=== PATIENT | female | born 1940 | race Caucasian/White ===

== ENCOUNTER 2016-08-23 14:24 | Inpatient (IN) | payer BC, MEDICARE ==
[~2016-08-23] VITALS: Ht 172.7 cm; Wt 95.7 kg
--- NOTE | 2016-08-23 14:56 | PHYS DOC ---
Past Medical History Past Medical History: Cancer, Depression, High Cholesterol, Hypertension Additional Past Medical Histor: BRST CANCER 2010 Past Surgical History: Other Additional Past Surgical Histo: BILATERAL MASTECTOMY, ANKLE SURGERY Alcohol Use: None Drug Use: None Adult General Chief Complaint Chief Complaint: ALTERED MENTAL STATUS HPI HPI Patient is a 76 year old female who presents with complaint of weakness and confusion. Patient brought to the emergency department by her family. They states starting approximately 4 hours prior to arrival the patient was having left-sided weakness, however on further questioning, the patient's states that the patient was having left upper extremity weakness last night that seemed to improve. The patient states that she does not feel well but she is unable to recall all events that took place earlier today and is thus a poor historian. Patient denies chest pain but does admit to generalized fatigue and weakness. Patient has history of hypertension, hyperlipidemia, and history of breast cancer. Patient has not had any reported fevers, nausea, abdominal pain, or bloody stools. Review of Systems Review of Systems Constitutional: Denies fever or chills [] Eyes: Denies change in visual acuity, redness, or eye pain [] HENT: Denies nasal congestion or sore throat [] Respiratory: Denies cough or shortness of breath [] Cardiovascular: Denies chest pain or edema [] GI: Denies abdominal pain, nausea, vomiting, bloody stools or diarrhea [] : Denies dysuria or hematuria [] Musculoskeletal: Denies back pain or joint pain [] Integument: Denies rash or skin lesions [] Neurologic: Confusion, headache, left-sided weakness [] Current Medications Current Medications Current Medications Medications (Trade) Dose Ordered Sig/[facility] Start Time Stop Time Status Last Admin Dose Admin Acetaminophen (Tylenol) 650 mg PRN Q4HRS PRN 08/23/16 16:45 08/24/16 16:44 Fentanyl Citrate 50 mcg 50 mcg PRN Q2HR PRN 08/23/16 16:45 08/24/16 16:44 Nicardipine HCl/ Sodium Chloride (Cardene/Iv Sodium Chloride 0.9% 250ml) 270 ml @ 0 mls/hr CONT PRN 08/23/16 15:00 08/23/16 15:35 5 MLS/HR Ondansetron HCl (Zofran) 4 mg PRN Q8HRS PRN 08/23/16 16:45 4/7/17 16:44 Sodium Chloride (Iv Sodium Chloride 0.9% 1000ml Bag) 1,000 ml @ 100 mls/hr Q10H 08/23/16 17:00 08/24/16 16:59 Allergies Allergies Allergies Coded Allergies Type Severity Reaction Last Updated Verified No Known Drug Allergies 04/27/15 No Physical Exam Physical Exam Constitutional: Alert, confused, afebrile, appears in mild discomfort. [] HENT: Normocephalic, atraumatic, bilateral external ears normal, oropharynx moist, no oral exudates, nose normal. [] Eyes: PERRLA, EOMI, conjunctiva normal, no discharge. [] Neck: Normal range of motion, no tenderness, supple, no stridor. [] Cardiovascular: Tachycardia, regular rhythm, no murmur [] Lungs & Thorax: Bilateral breath sounds clear to auscultation [] Abdomen: Bowel sounds normal, soft, no tenderness, no masses, no pulsatile masses. [] Skin: Warm, dry, no erythema, no rash. [] Back: No tenderness, no CVA tenderness. [] Extremities: No tenderness, no cyanosis, no clubbing, ROM intact, no edema. [] Neurologic: Alert, disoriented to events, cranial nerves II through XII grossly intact, negative pronator drift, normal motor function, normal sensory function , no focal deficits noted. [] Current Patient Data Vital Signs Vital Signs Date Time Temp Pulse Resp B/P Pulse Ox O2 Delivery O2 Flow Rate FiO2 08/23/16 14:30 98.3 109 16 233/98 100 Room Air 98.3 Lab Values Laboratory Tests Test 08/23/16 14:31 08/23/16 15:00 08/23/16 16:10 Glucose (Fingerstick) 121mg/dL (70-99) H White Blood Count 6.4x10^3/uL (4.0-11.0) Red Blood Count 4.61x10^6/uL (3.50-5.40) Hemoglobin 11.7g/dL (12.0-15.5) L Hematocrit 36.2% (36.0-47.0) Mean Corpuscular Volume 79fL (79-100) Mean Corpuscular Hemoglobin 26pg (25-35) Mean Corpuscular Hemoglobin Concent 33g/dL (31-37) Red Cell Distribution Width 15.2% (11.5-14.5) H Platelet Count 277x10^3/uL (140-400) Neutrophils (%) (Auto) 71% (31-73) Lymphocytes (%) (Auto) 19% (24-48) L Monocytes (%) (Auto) 8% (0-9) Eosinophils (%) (Auto) 1% (0-3) Basophils (%) (Auto) 1% (0-3) Neutrophils # (Auto) 4.6x10^3uL (1.8-7.7) Lymphocytes # (Auto) 1.2x10^3/uL (1.0-4.8) Monocytes # (Auto) 0.5x10^3/uL (0.0-1.1) Eosinophils # (Auto) 0.1x10^3/uL (0.0-0.7) Basophils # (Auto) 0.0x10^3/uL (0.0-0.2) Prothrombin Time 12.8SEC (11.7-14.0) Prothrombin Time INR 1.0 (0.8-1.1) PTT 30SEC (24-38) Sodium Level 138mmol/L (136-145) Potassium Level 4.3mmol/L (3.5-5.1) Chloride Level 102mmol/L (98-107) Carbon Dioxide Level 26mmol/L (21-32) Anion Gap 10 (6-14) Blood Urea Nitrogen 21mg/dL (7-20) H Creatinine 1.1mg/dL (0.6-1.0) H Estimated GFR (Cockcroft-Gault) 48.4 BUN/Creatinine Ratio 19 (6-20) Glucose Level 130mg/dL (70-99) H Calcium Level 9.4mg/dL (8.5-10.1) Magnesium Level 2.1mg/dL (1.8-2.4) Total Bilirubin 0.2mg/dL (0.2-1.0) Aspartate Amino Transferase (AST) 14U/L (15-37) L Alanine Aminotransferase (ALT) 17U/L (14-59) Alkaline Phosphatase 63U/L (46-116) Total Protein 7.4g/dL (6.4-8.2) Albumin 3.9g/dL (3.4-5.0) Albumin/Globulin Ratio 1.1 (1.0-1.7) Lipase 229U/L (73-393) Urine Collection Type U cath Urine Color Yellow Urine Clarity Clear Urine pH 7.0 Urine Specific Davis 1.015 Urine Protein Negativemg/dL (NEG-TRACE) Urine Glucose (UA) Negativemg/dL (NEG) Urine Ketones (Stick) Negativemg/dL (NEG) Urine Blood Negative (NEG) Urine Nitrite Negative (NEG) Urine Bilirubin Negative (NEG) Urine Urobilinogen Dipstick 0.2mg/dL (0.2 mg/dL) Urine Leukocyte Esterase Negative (NEG) Urine RBC 0/HPF (0-2) Urine WBC 0/HPF (0-4) Urine Transitional Epithelial Cells Mod/LPF Urine Amorphous Sediment Present/HPF Urine Bacteria 0/HPF (0-FEW) Laboratory Tests 08/23/16 15:00 Laboratory Tests 08/23/16 15:00 EKG EKG Interpreted by me: Heart rate 97, sinus rhythm, normal intervals, normal axis, no acute ST/T-wave abnormalities present [] Radiology/Procedures Radiology/Procedures [address] [id number] IMAGING REPORT Signed PATIENT: ELAN MCGINNIS ACCOUNT: [id number] : 1940 LOCATION: ER AGE: 76 SEX: F EXAM STATUS: REG ER ORD. PHYSICIAN: NAOMY MAYFIELD MD REASON: altered male status, r/o acute cardiopulmonary abnormality, 3:05 pt w/ labs PROCEDURE: PORTABLE CHEST 1V Portable chest, 08/23/2016: History: Altered mental status The heart size and pulmonary vascularity are within normal limits. No pulmonary infiltrate is seen. There are calcified right hilar lymph nodes. There is no evidence of pleural fluid. Surgical clips are projected over the left lower chest. IMPRESSION: No acute cardiopulmonary abnormality is detected. DICTATED and SIGNED BY: LONNIE CHANCE MD DATE: 08/23/16 3878 CC: NAOMY MAYFIELD MD; ABHAY CANTRELL MD ~ [id number] [place] [address] IMAGING REPORT Signed PATIENT: ELAN MCGINNIS ACCOUNT: [id number] : 1940 LOCATION: ER AGE: 76 SEX: F EXAM STATUS: PRE ER ORD. PHYSICIAN: NAOMY MAYFIELD MD REASON: left-sided weakness since last night PROCEDURE: CT HEAD WO CONTRAST CT of the head without contrast, 08/23/2016: History: Headache, altered mental status, left-sided weakness Comparison is made to a study from 06/28/2014. There is mild cerebral atrophy. There are mild patchy lucencies in the deep white matter bilaterally compatible with chronic ischemic change. The ventricles are within normal limits in size. There is no shift of the midline structures. There is no evidence of acute intracranial hemorrhage or mass effect. IMPRESSION: 1. Chronic findings as described above. 2. No acute intracranial abnormality is detected. RS Compliance Statement: One or more of the following individualized dose reduction techniques were utilized for this examination: 1. Automated exposure control 2. Adjustment of the mA and/or kV according to patient size 3. Use of iterative reconstruction technique DICTATED and SIGNED BY: LONNIE CHANCE MD DATE: 08/23/16 1524 CC: NAOMY MAYFIELD MD; ABHAY CANTRELL MD ~ [] Course & Med Decision Making Course & Med Decision Making Pertinent Labs and Imaging studies reviewed. (See chart for details) Patient's family critically hypertensive and started on Cardene drip for control of blood pressure. Patient's CT was negative for bleed or acute intracranial process. On reevaluation, patient states that she has felt improvement though still somewhat confused. The patient be admitted the hospital for further treatment of malignant hypertension and further evaluation to rule out acute CVA. Due to patient presenting greater than 3 hours from time of onset of symptoms with no further focal deficits noted on exam, the patient is not a candidate for TPA. The patient was admitted to Dr. Cantrell and consults were placed to Dr. Brewer of cardiology and Dr. Branch of neurology. Critical care time excluding procedures: 45 minutes Dragon Disclaimer Dragon Disclaimer This electronic medical record was generated, in whole or in part, using a voice recognition dictation system. Departure Departure Impression: Primary Impression: Malignant essential hypertension Additional Impression: Metabolic encephalopathy Disposition: 09 ADMITTED INPATIENT Admitting Physician: Roro Cantrell Condition: GUARDED Referrals: ABHAY CANTRELL MD (PCP) Problem Qualifiers NAOMY MAYFIELD MD Aug 23, 2016 14:56
[2016-08-23] MEDS ORDERED: IV NORMAL SALINE 1000ML BAG 1,000 ML IV SCH (15:00)
[2016-08-23 15:13] LABS: BASO % 1 % (0-3); EOS % 1 % (0-3); HEMATOCRIT 36.2 % (36.0-47.0); HEMOGLOBIN 11.7 g/dL (12.0-15.5); LYMPH # 1.2 x10^3/uL (1.0-4.8); LYMPH % 19 % (24-48); MEAN CORPUSCULAR HEMOGLOBIN 26 pg (25-35); MEAN CORPUSCULAR HGB CONC 33 g/dL (31-37); MEAN CORPUSCULAR VOLUME 79 fL (79-100); MONO % 8 % (0-9); NEUT % 71 % (31-73); PLATELET COUNT 277 x10^3/uL (140-400); RED BLOOD COUNT 4.61 x10^6/uL (3.50-5.40); RED CELL DISTRIBUTION WIDTH 15.2 % (11.5-14.5); WHITE BLOOD COUNT 6.4 x10^3/uL (4.0-11.0)
--- NOTE | 2016-08-23 15:18 | EKG ---
[facility] [address] [place] [address] Test Date: 2016-08-23 Test Time: 15:11:15 Pat Name: ELAN MCGINNIS Department: Room: Gender: F Supervisor Sample: : 1940 Requested By: NAOMY MAYFIELD Order Number: [id number] Reading MD: Measurements Intervals Mentcle Rate: 97 P: 52 TN: 186 QRS: 6 QRSD: 78 T: 47 QT: 364 QTc: 467 Interpretive Statements SINUS RHYTHM LEFT ATRIAL ABNORMALITY QRS(T) CONTOUR ABNORMALITY CONSIDER ANTEROLATERAL MYOCARDIAL DAMAGE T ABNORMALITY IN ANTERIOR LEADS ABNORMAL ECG RI6.01 No previous ECG available for comparison
[2016-08-23 15:23] LABS: PROTHROMBIN TIME PATIENT 12.8 SEC (11.7-14.0)
--- NOTE | 2016-08-23 15:28 | RAD ---
CT of the head without contrast, 08/23/2016: History: Headache, altered mental status, left-sided weakness Comparison is made to a study from 06/28/2014. There is mild cerebral atrophy. There are mild patchy lucencies in the deep white matter bilaterally compatible with chronic ischemic change. The ventricles are within normal limits in size. There is no shift of the midline structures. There is no evidence of acute intracranial hemorrhage or mass effect. IMPRESSION: 1. Chronic findings as described above. 2. No acute intracranial abnormality is detected. PQRS Compliance Statement: One or more of the following individualized dose reduction techniques were utilized for this examination: 1. Automated exposure control 2. Adjustment of the mA and/or kV according to patient size 3. Use of iterative reconstruction technique
[2016-08-23] MEDS: NICARDIPINE HCL 50 MG in IV NORMAL SALINE 250ML 250 ML IV PRN (15:35)
[2016-08-23 16:04] LABS: CALCIUM 9.4 mg/dL (8.5-10.1); CREATININE 1.1 mg/dL (0.6-1.0); GFR 48.4; POTASSIUM 4.3 mmol/L (3.5-5.1)
[2016-08-23 16:09] LABS: ALBUMIN 3.9 g/dL (3.4-5.0); ALBUMIN/GLOBULIN RATIO 1.1 (1.0-1.7); MAGNESIUM 2.1 mg/dL (1.8-2.4); TOTAL BILIRUBIN 0.2 mg/dL (0.2-1.0); TOTAL PROTEIN 7.4 g/dL (6.4-8.2)
--- NOTE | 2016-08-23 16:13 | RAD ---
Portable chest, 08/23/2016: History: Altered mental status The heart size and pulmonary vascularity are within normal limits. No pulmonary infiltrate is seen. There are calcified right hilar lymph nodes. There is no evidence of pleural fluid. Surgical clips are projected over the left lower chest. IMPRESSION: No acute cardiopulmonary abnormality is detected.
[2016-08-23 16:26] LABS: BILIRUBIN,URINE NEGATIVE (NEG); GLUCOSE,URINE NEGATIVE (NEG); NITRITE,URINE NEGATIVE (NEG); PROTEIN,URINE NEGATIVE (NEG-TRACE); UROBILINOGEN,URINE 0.2 mg/dL (0.2 mg/dL)
[2016-08-23 16:39] LABS: BACTERIA,URINE 0 /HPF (0-FEW); RBC,URINE 0 /HPF (0-2); WBC,URINE 0 /HPF (0-4)
[2016-08-23] MEDS ORDERED: ONDANSETRON PF 4 MG/2 ML VIAL. IV PRN (16:45)
[2016-08-23] MEDS ORDERED: FENTANYL PF 100 MCG/2 ML VIAL. IV PRN (16:45)
[2016-08-23] MEDS ORDERED: PRAV40TA2 PO (18:08)
[2016-08-23] MEDS ORDERED: TIOT18CA IH (18:08)
[2016-08-23] MEDS ORDERED: PANT40TA5 PO (18:08)
[2016-08-23] MEDS ORDERED: OMEP20TA PO (18:08)
[2016-08-23] MEDS ORDERED: LEVO137T3 PO (18:08)
[2016-08-23] MEDS ORDERED: LISI-334 PO (18:08)
[2016-08-23] MEDS ORDERED: BENZ100C2 PO (18:08)
[2016-08-23] MEDS ORDERED: TRAM50TA PO (18:08)
[2016-08-23] MEDS ORDERED: THIO25TA PO (18:08)
[2016-08-23 19:15] VITALS: BP 146/117
[2016-08-23 20:00] VITALS: BP 154/72
[2016-08-23 21:18] VITALS: BP 143/71
[2016-08-23 22:00] VITALS: BP 147/61
[2016-08-23] MEDS: ACETAMINOPHEN 325 MG TABLET. PO PRN (22:39)
[2016-08-23 23:20] VITALS: BP 148/67
[2016-08-24] VITALS (13 sets, daily range): BP systolic 116–196; BP diastolic 52–73
[2016-08-24] MEDS: NICARDIPINE HCL 50 MG in IV NORMAL SALINE 250ML 250 ML IV PRN (02:12)
[2016-08-24] MEDS: IV NORMAL SALINE 1000ML BAG 1,000 ML IV SCH ×3 (02:13→13:00)
[2016-08-24 04:48] LABS: CALCIUM 8.9 mg/dL (8.5-10.1); CREATININE 0.9 mg/dL (0.6-1.0); POTASSIUM 3.7 mmol/L (3.5-5.1)
[2016-08-24 05:33] LABS: BASO % 0 % (0-3); EOS % 0 % (0-3); HEMATOCRIT 35.4 % (36.0-47.0); HEMOGLOBIN 11.5 g/dL (12.0-15.5); LYMPH # 1.6 x10^3/uL (1.0-4.8); LYMPH % 19 % (24-48); MEAN CORPUSCULAR HEMOGLOBIN 25 pg (25-35); MEAN CORPUSCULAR HGB CONC 33 g/dL (31-37); MEAN CORPUSCULAR VOLUME 78 fL (79-100); MONO % 9 % (0-9); NEUT % 72 % (31-73); PLATELET COUNT 270 x10^3/uL (140-400); RED BLOOD COUNT 4.56 x10^6/uL (3.50-5.40); RED CELL DISTRIBUTION WIDTH 15.3 % (11.5-14.5); WHITE BLOOD COUNT 8.2 x10^3/uL (4.0-11.0)
[2016-08-24] MEDS ORDERED: TRAMADOL 50 MG TABLET. PO PRN (07:15)
[2016-08-24] MEDS ORDERED: DEXTROSE 50% 25 GM / 50ML DISP.SYRIN. IV PRN (08:30)
--- NOTE | 2016-08-24 08:35 | PDOC ---
Provider Note Provider Note H&P dictated encephalopathy with left sided weakness due to malignant hypertensive event without clear cause. Better overnight after being placed on nicardipine drip. BP now controlled and neurologic/encephalopathic symptoms have resolved. Cardiology and Neurology to see. Only abnormal exam finding I could find is flushing of her cheeks. She also has mild anemia and mild hyperglycemia ABHAY PARKS MD Aug 24, 2016 08:34
[2016-08-24] MEDS ORDERED: PNEUMOCOCCAL VAX SCREEN BY RX. MC ONE (09:00)
[2016-08-24] MEDS ORDERED: PNEUMOC CONJ VACC 23-VALENT 0.5 ML VIAL. VAX IM ONE (09:00)
[2016-08-24] MEDS ORDERED: NON FORMULARY ITEM (Tiotropium Bromide (Spiriva) 2 INH) IH SCH (09:00)
[2016-08-24] MEDS ORDERED: NON FORMULARY ITEM (Omeprazole 20 MG) PO SCH (09:00)
[2016-08-24] MEDS: PANTOPRAZOLE 40 MG TABLET.DR. PO SCH (09:27)
[2016-08-24] MEDS: LISINOPRIL 20 MG TABLET PO SCH (09:28)
[2016-08-24] MEDS: LEVOTHYROXINE 137 MCG TABLET PO SCH (09:28)
--- NOTE | 2016-08-24 10:46 | PDOC2 ---
NEUROLOGY CONSULT Date of Admission Date of Admission DATE: 08/24/16 TIME: 10:40 Reason for Consult Reason for Consult: Stroke symptoms Referring Physician Referring Physician: Dr. Cantrell Source Source: Chart review, Patient History of Present Illness History of Present Illness The patient is a 76-year-old right-handed female with history of hypertension who noticed headache and left-sided weakness beginning 2 nights ago. Symptoms were worse yesterday and she came to the emergency department where she was found to have hypertension. I discussed the case and we agreed that the patient was not a candidate for tissue plasminogen activator as her symptoms actually markedly improved with treatment of blood pressure. She feels fine today. There is no prior history of stroke, seizure, or head injury. Night nurse reports that the patient had trouble interpreting the face pain diagrams, but she is doing fine today with that. Past Medical History Cardiovascular: HTN, Hyperlipidemia Pulmonary: COPD GI: GERD Heme/Onc: Cancer (breast) Psych: Depression Musculoskeletal: Osteoarthritis, Other (ankle fracture) Endocrine: Hypothyroidism Past Surgical History Past Surgical History: Cholecystectomy, Cataract Removal, Mastectomy Family History Family History: Other (encephalitis) Social History Social History , one half pack of cigarettes per day, no alcohol Current Medications Current Medications Current Medications Sodium Chloride 1,000 ml @ 100 mls/hr Q10H IV Last administered on 08/23/16 15 :36; Start 08/23/16 at 15:00; Stop 08/24/16 at 00:59; Status DC Nicardipine HCl/ Sodium Chloride (Cardene/Iv Sodium Chloride 0.9% 250ml) 270 ml @ 0 mls/hr CONT PRN IV SEE I/O RECORD Last administered on 08/24/16 02:12; Start 08/23/16 at 15:00 Ondansetron HCl (Zofran) 4 mg PRN Q8HRS PRN IV NAUSEA/VOMITING; Start 08/23/16 at 16:45; Stop 08/24/16 at 16:44 Fentanyl Citrate 50 mcg 50 mcg PRN Q2HR PRN IV PAIN; Start 08/23/16 at 16:45; Stop 08/24/16 at 16:44 Sodium Chloride (Iv Sodium Chloride 0.9% 1000ml Bag) 1,000 ml @ 100 mls/hr Q10H IV Last administered on 08/24/16 02:13; Start 08/23/16 at 17:00; Stop at 16:59 Acetaminophen (Tylenol) 650 mg PRN Q4HRS PRN PO FEVER Last administered on 22:39; Start 08/23/16 at 16:45; Stop 08/24/16 at 16:44 Pneumococcal Polyvalent Vaccine (Do NOT chart on this placeholder) 1 each 1X ONCE MC ; Start 08/24/16 at 09:00; Stop 08/24/16 at 09:01; Status UNV Pneumococcal Polyvalent Vaccine (Pneumovax 23) 0.5 ml ONCE ONCE VAX IM ; Start 08/24/16 at 09:00; Stop 08/24/16 at 09:01; Status DC Levothyroxine Sodium (Synthroid) 137 mcg DAILYAC PO Last administered on 09:28; Start 08/24/16 at 08:00 Lisinopril (Prinivil) 20 mg DAILY PO Last administered on 08/24/16 09:28; Start 08/24/16 at 09:00 Pantoprazole Sodium (Protonix) 40 mg DAILYAC PO Last administered on 08/24/16 09:27; Start 08/24/16 at 08:00 Thioridazine HCl (Mellaril) 25 mg QHS PO ; Start 08/24/16 at 21:00; Stop 08/24/16 at 21:00; Status DC Tramadol HCl (Ultram) 50 mg PRN Q6HRS PRN PO PAIN; Start 08/24/16 at 07:15 Non-Formulary Medication 20 mg DAILY PO ; Start 08/24/16 at 09:00; Status UNV Atorvastatin Calcium (Lipitor) 10 mg QHS PO ; Start 08/24/16 at 21:00 Non-Formulary Medication 2 inh DAILY IH ; Start 08/24/16 at 09:00; Status UNV Albuterol/ Ipratropium (Duoneb) 3 ml RTQID NEB ; Start 08/24/16 at 08:00 Thioridazine HCl (Mellaril) 25 mg QHS PO ; Start 08/24/16 at 21:00 Insulin Aspart (Novolog) 0-5 UNITS TIDWMEALS SQ ; Start 08/24/16 at 12:00 Dextrose (Dextrose 50%-Water Syringe) 12.5 gm PRN Q15MIN PRN IV SEE COMMENTS; Start 08/24/16 at 08:30 Active Scripts Active Reported Spiriva (Tiotropium [place]) 18 Mcg Cap.w.dev 2 Inh IH DAILY Tramadol Hcl 50 Mg Tablet 50 Mg PO Q6H PRN Omeprazole 20 Mg Tablet. 20 Mg PO DAILY Benzonatate 100 Mg Capsule 100 Mg PO TID PRN Thioridazine Hcl 25 Mg Tablet 25 Mg PO Pravastatin Sodium 40 Mg Tablet 40 Mg PO DAILY Lisinopril 20 Mg Tablet 20 Mg PO DAILY Levothyroxine Sodium 137 Mcg Tablet 137 Mcg PO DAILYAC Pantoprazole Sodium 40 Mg Tablet. 1 Tab PO DAILY Allergies Allergies: Coded Allergies: No Known Drug Allergies (Unverified , 04/27/15) ROS Review of System Patient denies fevers, chills, weight loss, angina, abdominal pain, change in bowels, or dysuria. Positive for dyspnea. 14 point review of systems is negative. Physical Exam Physical Examination PHYSICAL EXAMINATION: Vital signs: see above. General appearance is normal and in no acute distress. HEENT: Normocephalic and nontraumatic. Eyes, nose, ears, and throat are unremarkable. Neck is supple. No lymphadenopathy. No bruits are heard over the carotid artery. No crepitus. NEUROLOGICAL EXAMINATION: Mental Status Examination: Alert. Oriented to time, place, and person. Answers questions and follows commends. Pupils are equal round and reactive to light and accommodation. Extraocular movements are intact. Visual field exam shows no defect on the direct confrontation. No motor or sensory deficits on the facial exam. Uvula in the midline and the soft palate elevated symmetrically. No deviation of the tongue to any direction. Gross hearing is normal. Shoulder shrug normal. Muscle tone is normal. Muscle strength is 5. Deep tendon reflexes are 2+ all around. Plantar reflex is with flexion response bilaterally. Ksnjxo-ih-zjmu test performance is accurate. Tandem walk test is accurate. Alternative movements are accurate. Romberg test is negative. Gait is normal. Sensory exam shows no deficits. No cerebellar signs are elicited. Vitals VITALS Vital Signs Date Time Temp Pulse Resp B/P Pulse Ox O2 Delivery O2 Flow Rate FiO2 08/24/16 09:28 107 136/66 08/24/16 07:00 98.0 19 92 Room Air 98.0 Labs Labs Laboratory Tests Test 08/23/16 14:31 4/6/17 15:00 08/23/16 16:10 08/24/16 04:00 Glucose (Fingerstick) 121mg/dL (70-99) White Blood Count 6.4x10^3/uL (4.0-11.0) Red Blood Count 4.61x10^6/uL (3.50-5.40) Hemoglobin 11.7g/dL (12.0-15.5) Hematocrit 36.2% (36.0-47.0) Mean Corpuscular Volume 79fL (79-100) Mean Corpuscular Hemoglobin 26pg (25-35) Mean Corpuscular Hemoglobin Concent 33g/dL (31-37) Red Cell Distribution Width 15.2% (11.5-14.5) Platelet Count 277x10^3/uL (140-400) Neutrophils (%) (Auto) 71% (31-73) Lymphocytes (%) (Auto) 19% (24-48) Monocytes (%) (Auto) 8% (0-9) Eosinophils (%) (Auto) 1% (0-3) Basophils (%) (Auto) 1% (0-3) Neutrophils # (Auto) 4.6x10^3uL (1.8-7.7) Lymphocytes # (Auto) 1.2x10^3/uL (1.0-4.8) Monocytes # (Auto) 0.5x10^3/uL (0.0-1.1) Eosinophils # (Auto) 0.1x10^3/uL (0.0-0.7) Basophils # (Auto) 0.0x10^3/uL (0.0-0.2) Prothrombin Time 12.8SEC (11.7-14.0) Prothromb Time International Ratio 1.0 (0.8-1.1) Activated Partial Thromboplast Time 30SEC (24-38) Sodium Level 138mmol/L (136-145) 137mmol/L (136-145) Potassium Level 4.3mmol/L (3.5-5.1) 3.7mmol/L (3.5-5.1) Chloride Level 102mmol/L (98-107) 102mmol/L (98-107) Carbon Dioxide Level 26mmol/L (21-32) 23mmol/L (21-32) Anion Gap 10 (6-14) 12 (6-14) Blood Urea Nitrogen 21mg/dL (7-20) 12mg/dL (7-20) Creatinine 1.1mg/dL (0.6-1.0) 0.9mg/dL (0.6-1.0) Estimated GFR (Cockcroft-Gault) 48.4 61.0 BUN/Creatinine Ratio 19 (6-20) Glucose Level 130mg/dL (70-99) 137mg/dL (70-99) Calcium Level 9.4mg/dL (8.5-10.1) 8.9mg/dL (8.5-10.1) Magnesium Level 2.1mg/dL (1.8-2.4) Total Bilirubin 0.2mg/dL (0.2-1.0) Aspartate Amino Transf (AST/SGOT) 14U/L (15-37) Alanine Aminotransferase (ALT/SGPT) 17U/L (14-59) Alkaline Phosphatase 63U/L (46-116) Total Protein 7.4g/dL (6.4-8.2) Albumin 3.9g/dL (3.4-5.0) Albumin/Globulin Ratio 1.1 (1.0-1.7) Lipase 229U/L (73-393) Urine Collection Type U cath Urine Color Yellow Urine Clarity Clear Urine pH 7.0 Urine Specific [place] 1.015 Urine Protein Negativemg/dL (NEG-TRACE) Urine Glucose (UA) Negativemg/dL (NEG) Urine Ketones (Stick) Negativemg/dL (NEG) Urine Blood Negative (NEG) Urine Nitrite Negative (NEG) Urine Bilirubin Negative (NEG) Urine Urobilinogen Dipstick 0.2mg/dL (0.2 mg/dL) Urine Leukocyte Esterase Negative (NEG) Urine RBC 0/HPF (0-2) Urine WBC 0/HPF (0-4) Urine Transitional Epithelial Cells Mod/LPF Urine Amorphous Sediment Present/HPF Urine Bacteria 0/HPF (0-FEW) Thyroid Stimulating Hormone (TSH) 0.218uIU/mL (0.358-3.74) Test 08/24/16 05:00 White Blood Count 8.2x10^3/uL (4.0-11.0) Red Blood Count 4.56x10^6/uL (3.50-5.40) Hemoglobin 11.5g/dL (12.0-15.5) Hematocrit 35.4% (36.0-47.0) Mean Corpuscular Volume 78fL (79-100) Mean Corpuscular Hemoglobin 25pg (25-35) Mean Corpuscular Hemoglobin Concent 33g/dL (31-37) Red Cell Distribution Width 15.3% (11.5-14.5) Platelet Count 270x10^3/uL (140-400) Neutrophils (%) (Auto) 72% (31-73) Lymphocytes (%) (Auto) 19% (24-48) Monocytes (%) (Auto) 9% (0-9) Eosinophils (%) (Auto) 0% (0-3) Basophils (%) (Auto) 0% (0-3) Neutrophils # (Auto) 5.9x10^3uL (1.8-7.7) Lymphocytes # (Auto) 1.6x10^3/uL (1.0-4.8) Monocytes # (Auto) 0.7x10^3/uL (0.0-1.1) Eosinophils # (Auto) 0.0x10^3/uL (0.0-0.7) Basophils # (Auto) 0.0x10^3/uL (0.0-0.2) Laboratory Tests Test 08/23/16 14:31 08/23/16 15:00 08/23/16 16:10 08/24/16 04:00 Glucose (Fingerstick) 121mg/dL (70-99) White Blood Count 6.4x10^3/uL (4.0-11.0) Red Blood Count 4.61x10^6/uL (3.50-5.40) Hemoglobin 11.7g/dL (12.0-15.5) Hematocrit 36.2% (36.0-47.0) Mean Corpuscular Volume 79fL (79-100) Mean Corpuscular Hemoglobin 26pg (25-35) Mean Corpuscular Hemoglobin Concent 33g/dL (31-37) Red Cell Distribution Width 15.2% (11.5-14.5) Platelet Count 277x10^3/uL (140-400) Neutrophils (%) (Auto) 71% (31-73) Lymphocytes (%) (Auto) 19% (24-48) Monocytes (%) (Auto) 8% (0-9) Eosinophils (%) (Auto) 1% (0-3) Basophils (%) (Auto) 1% (0-3) Neutrophils # (Auto) 4.6x10^3uL (1.8-7.7) Lymphocytes # (Auto) 1.2x10^3/uL (1.0-4.8) Monocytes # (Auto) 0.5x10^3/uL (0.0-1.1) Eosinophils # (Auto) 0.1x10^3/uL (0.0-0.7) Basophils # (Auto) 0.0x10^3/uL (0.0-0.2) Prothrombin Time 12.8SEC (11.7-14.0) Prothromb Time International Ratio 1.0 (0.8-1.1) Activated Partial Thromboplast Time 30SEC (24-38) Sodium Level 138mmol/L (136-145) 137mmol/L (136-145) Potassium Level 4.3mmol/L (3.5-5.1) 3.7mmol/L (3.5-5.1) Chloride Level 102mmol/L (98-107) 102mmol/L (98-107) Carbon Dioxide Level 26mmol/L (21-32) 23mmol/L (21-32) Anion Gap 10 (6-14) 12 (6-14) Blood Urea Nitrogen 21mg/dL (7-20) 12mg/dL (7-20) Creatinine 1.1mg/dL (0.6-1.0) 0.9mg/dL (0.6-1.0) Estimated GFR (Cockcroft-Gault) 48.4 61.0 BUN/Creatinine Ratio 19 (6-20) Glucose Level 130mg/dL (70-99) 137mg/dL (70-99) Calcium Level 9.4mg/dL (8.5-10.1) 8.9mg/dL (8.5-10.1) Magnesium Level 2.1mg/dL (1.8-2.4) Total Bilirubin 0.2mg/dL (0.2-1.0) Aspartate Amino Transf (AST/SGOT) 14U/L (15-37) Alanine Aminotransferase (ALT/SGPT) 17U/L (14-59) Alkaline Phosphatase 63U/L (46-116) Total Protein 7.4g/dL (6.4-8.2) Albumin 3.9g/dL (3.4-5.0) Albumin/Globulin Ratio 1.1 (1.0-1.7) Lipase 229U/L (73-393) Urine Collection Type U cath Urine Color Yellow Urine Clarity Clear Urine pH 7.0 Urine Specific [place] 1.015 Urine Protein Negativemg/dL (NEG-TRACE) Urine Glucose (UA) Negativemg/dL (NEG) Urine Ketones (Stick) Negativemg/dL (NEG) Urine Blood Negative (NEG) Urine Nitrite Negative (NEG) Urine Bilirubin Negative (NEG) Urine Urobilinogen Dipstick 0.2mg/dL (0.2 mg/dL) Urine Leukocyte Esterase Negative (NEG) Urine RBC 0/HPF (0-2) Urine WBC 0/HPF (0-4) Urine Transitional Epithelial Cells Mod/LPF Urine Amorphous Sediment Present/HPF Urine Bacteria 0/HPF (0-FEW) Thyroid Stimulating Hormone (TSH) 0.218uIU/mL (0.358-3.74) Test 08/24/16 05:00 White Blood Count 8.2x10^3/uL (4.0-11.0) Red Blood Count 4.56x10^6/uL (3.50-5.40) Hemoglobin 11.5g/dL (12.0-15.5) Hematocrit 35.4% (36.0-47.0) Mean Corpuscular Volume 78fL (79-100) Mean Corpuscular Hemoglobin 25pg (25-35) Mean Corpuscular Hemoglobin Concent 33g/dL (31-37) Red Cell Distribution Width 15.3% (11.5-14.5) Platelet Count 270x10^3/uL (140-400) Neutrophils (%) (Auto) 72% (31-73) Lymphocytes (%) (Auto) 19% (24-48) Monocytes (%) (Auto) 9% (0-9) Eosinophils (%) (Auto) 0% (0-3) Basophils (%) (Auto) 0% (0-3) Neutrophils # (Auto) 5.9x10^3uL (1.8-7.7) Lymphocytes # (Auto) 1.6x10^3/uL (1.0-4.8) Monocytes # (Auto) 0.7x10^3/uL (0.0-1.1) Eosinophils # (Auto) 0.0x10^3/uL (0.0-0.7) Basophils # (Auto) 0.0x10^3/uL (0.0-0.2) Images Images CT head Assessment/Plan Assessment/Plan Impression: Hypertensive encephalopathy, I doubt that she had a transient ischemic attack and there is no sign that she had a stroke. Recommendations: Await brain MRI Further stroke workup if it is positive Otherwise pursue blood pressure control Aspirin Statin Thank you for letting me help with the patient's care. WILDER ELIAS MD Aug 24, 2016 10:46
[2016-08-24] MEDS: INSULIN ASPART 300 UNITS/3 ML INSULN.PEN SQ SCH ×2 (12:00→17:00)
--- NOTE | 2016-08-24 12:51 | RAD ---
BRAIN W/O CONTRAST Indication: intermittent left-sided weakness, ? STROKE, X 1 DAY, HEADACHE, weakness, ? STROKE, X 1 DAY, HEADACHE, HTN / Spl. Instructions: / History: TECHNIQUE: Axial diffusion weighted imaging was obtained. Additional sagittal T1, axial T1, axial FLAIR, and axial T2 weighted imaging of the brain was also performed. FINDINGS: There are scattered foci of FLAIR signal hyperintensity in the periventricular white matter which are nonspecific but most likely related to sequelae of chronic small vessel ischemic disease. No evidence of acute intracranial hemorrhage. No restricted diffusion to indicate acute infarct. No extra-axial fluid collections. No midline shift or mass effect. Ventricular size is appropriate. Midline structures have a normal anatomic configuration. Basal cisterns are patent. Arterial flow voids at the skull base and major dural venous sinuses are maintained. Globes and orbits are unremarkable. Paranasal sinuses and mastoid air cells are clear. IMPRESSION: No acute or recent infarct. No acute intracranial abnormality. Electronically signed by: Aiden Appiah (Aug 24, 2016 12:49:33)
[2016-08-24] MEDS: IPRATRPIUM/ALBUTEROL 0.5/2.5MG 3 ML NEBU. NEB SCH ×3 (13:14→19:48)
--- NOTE | 2016-08-24 13:30 | PDOC2 ---
KIRILLCHEYENNE DOTSON HEEL NAIL RASPER 08/24/16 1330: CARDIAC CONSULT DATE OF CONSULT Date of Consult DATE: 08/24/16 TIME: 13:11 REASON FOR CONSULT Reason for Consult: malignant HTN REFERRING PHYSICIAN Referring Physician: Dr. Paul Shen SOURCE Source: Chart review, Patient HISTORY OF PRESENT ILLNESS HISTORY OF PRESENT ILLNESS 76 year old female with changes in mental status and left side weakness. Patient without clear recall of events. noted she was dropping objects and had a headache as well as an inability to complete sentences or thoughts. She denies diplopia but may have had difficulty with clear vision. She denies chest pain, dyspnea, syncope, near syncope or edema. BP on admission was 233/98. She was started on a nicardipine gtt. CT scan of the head without acute abnormalities and CXR without acute findings. EKG without ST segment changes. Reason for Visit: malignant HTN PAST MEDICAL HISTORY Cardiovascular: HTN, Hyperlipidemia Pulmonary: COPD GI: GERD Heme/Onc: Cancer (breast with bilateral mastectomies) Psych: Other (? - has been on mellaril @ home) Musculoskeletal: Osteoarthritis ENT: Allergic Rhinitis Endocrine: Hypothyroidism PAST SURGICAL HISTORY Past Surgical History: Cholecystectomy, Cataract Removal (bilateral ), Mastectomy (bilateral ), Tonsillectomy, Other (repair of left ankle fracture) FAMILY HISTORY Family History: Family History Unknown SOCIAL HISTORY Smoke: <1 pack per day (05/21 ppd; quit 1990) ALCOHOL: rare Drugs: None Lives: with Family () CURRENT MEDICATIONS CURRENT MEDICATIONS Current Medications Medications (Trade) Dose Ordered Sig/Lola Route PRN Reason Start Time Stop Time Status Last Admin Dose Admin Sodium Chloride 1,000 ml @ 100 mls/hr Q10H IV 08/23/16 15:00 08/24/16 00:59 DC 08/23/16 15:36 Nicardipine HCl 50 mg/Sodium Chloride 270 ml @ 0 mls/hr CONT PRN IV SEE I/O RECORD 08/23/16 15:00 08/24/16 02:12 Sodium Chloride (Iv Sodium Chloride 0.9% 1000ml Bag) 1,000 ml @ 100 mls/hr Q10H IV 08/23/16 17:00 08/24/16 16:59 08/24/16 02:13 Acetaminophen (Tylenol) 650 mg PRN Q4HRS PRN PO FEVER 08/23/16 16:45 08/24/16 16:44 4/6/17 22:39 Levothyroxine Sodium (Synthroid) 137 mcg DAILYAC PO 08/24/16 08:00 08/24/16 09:28 Lisinopril (Prinivil) 20 mg DAILY PO 08/24/16 09:00 08/24/16 09:28 Pantoprazole Sodium (Protonix) 40 mg DAILYAC PO 08/24/16 08:00 08/24/16 09:27 ALLERGIES ALLERGIES: Coded Allergies: No Known Drug Allergies (Unverified , 04/27/15) ROS Review of System 14 point review with pertinent positives in HPI PHYSICAL EXAM General: Alert, Cooperative, No acute distress HEENT: Atraumatic, PERRLA Lungs: Clear to auscultation, Normal air movement Heart: Regular rate, Normal S1, Normal S2, No murmurs, Other (no carotid bruits ; tele: SR) Abdomen: Normal bowel sounds, Soft, No tenderness, Other (obese abdomen) Extremities: No edema, Normal pulses Skin: No rashes Neuro: Normal speech Psych/Mental Status: Mood NL MUSCULOSKELETAL: Osteoarthritic changes both hands VITALS VITALS Vital Signs Date Time Temp Pulse Resp B/P Pulse Ox O2 Delivery O2 Flow Rate FiO2 08/24/16 11:27 98.1 97 20 122/52 92 Room Air 98.1 LABS Lab: Laboratory Tests Test 08/23/16 14:31 08/23/16 15:00 08/23/16 16:10 08/24/16 04:00 Glucose (Fingerstick) 121mg/dL (70-99) White Blood Count 6.4x10^3/uL (4.0-11.0) Red Blood Count 4.61x10^6/uL (3.50-5.40) Hemoglobin 11.7g/dL (12.0-15.5) Hematocrit 36.2% (36.0-47.0) Mean Corpuscular Volume 79fL (79-100) Mean Corpuscular Hemoglobin 26pg (25-35) Mean Corpuscular Hemoglobin Concent 33g/dL (31-37) Red Cell Distribution Width 15.2% (11.5-14.5) Platelet Count 277x10^3/uL (140-400) Neutrophils (%) (Auto) 71% (31-73) Lymphocytes (%) (Auto) 19% (24-48) Monocytes (%) (Auto) 8% (0-9) Eosinophils (%) (Auto) 1% (0-3) Basophils (%) (Auto) 1% (0-3) Neutrophils # (Auto) 4.6x10^3uL (1.8-7.7) Lymphocytes # (Auto) 1.2x10^3/uL (1.0-4.8) Monocytes # (Auto) 0.5x10^3/uL (0.0-1.1) Eosinophils # (Auto) 0.1x10^3/uL (0.0-0.7) Basophils # (Auto) 0.0x10^3/uL (0.0-0.2) Prothrombin Time 12.8SEC (11.7-14.0) Prothromb Time International Ratio 1.0 (0.8-1.1) Activated Partial Thromboplast Time 30SEC (24-38) Sodium Level 138mmol/L (136-145) 137mmol/L (136-145) Potassium Level 4.3mmol/L (3.5-5.1) 3.7mmol/L (3.5-5.1) Chloride Level 102mmol/L (98-107) 102mmol/L (98-107) Carbon Dioxide Level 26mmol/L (21-32) 23mmol/L (21-32) Anion Gap 10 (6-14) 12 (6-14) Blood Urea Nitrogen 21mg/dL (7-20) 12mg/dL (7-20) Creatinine 1.1mg/dL (0.6-1.0) 0.9mg/dL (0.6-1.0) Estimated GFR (Cockcroft-Gault) 48.4 61.0 BUN/Creatinine Ratio 19 (6-20) Glucose Level 130mg/dL (70-99) 137mg/dL (70-99) Calcium Level 9.4mg/dL (8.5-10.1) 8.9mg/dL (8.5-10.1) Magnesium Level 2.1mg/dL (1.8-2.4) Total Bilirubin 0.2mg/dL (0.2-1.0) Aspartate Amino Transf (AST/SGOT) 14U/L (15-37) Alanine Aminotransferase (ALT/SGPT) 17U/L (14-59) Alkaline Phosphatase 63U/L (46-116) Total Protein 7.4g/dL (6.4-8.2) Albumin 3.9g/dL (3.4-5.0) Albumin/Globulin Ratio 1.1 (1.0-1.7) Lipase 229U/L (73-393) Urine Collection Type U cath Urine Color Yellow Urine Clarity Clear Urine pH 7.0 Urine Specific [place] 1.015 Urine Protein Negativemg/dL (NEG-TRACE) Urine Glucose (UA) Negativemg/dL (NEG) Urine Ketones (Stick) Negativemg/dL (NEG) Urine Blood Negative (NEG) Urine Nitrite Negative (NEG) Urine Bilirubin Negative (NEG) Urine Urobilinogen Dipstick 0.2mg/dL (0.2 mg/dL) Urine Leukocyte Esterase Negative (NEG) Urine RBC 0/HPF (0-2) Urine WBC 0/HPF (0-4) Urine Transitional Epithelial Cells Mod/LPF Urine Amorphous Sediment Present/HPF Urine Bacteria 0/HPF (0-FEW) Thyroid Stimulating Hormone (TSH) 0.218uIU/mL (0.358-3.74) Test 08/24/16 05:00 White Blood Count 8.2x10^3/uL (4.0-11.0) Red Blood Count 4.56x10^6/uL (3.50-5.40) Hemoglobin 11.5g/dL (12.0-15.5) Hematocrit 35.4% (36.0-47.0) Mean Corpuscular Volume 78fL (79-100) Mean Corpuscular Hemoglobin 25pg (25-35) Mean Corpuscular Hemoglobin Concent 33g/dL (31-37) Red Cell Distribution Width 15.3% (11.5-14.5) Platelet Count 270x10^3/uL (140-400) Neutrophils (%) (Auto) 72% (31-73) Lymphocytes (%) (Auto) 19% (24-48) Monocytes (%) (Auto) 9% (0-9) Eosinophils (%) (Auto) 0% (0-3) Basophils (%) (Auto) 0% (0-3) Neutrophils # (Auto) 5.9x10^3uL (1.8-7.7) Lymphocytes # (Auto) 1.6x10^3/uL (1.0-4.8) Monocytes # (Auto) 0.7x10^3/uL (0.0-1.1) Eosinophils # (Auto) 0.0x10^3/uL (0.0-0.7) Basophils # (Auto) 0.0x10^3/uL (0.0-0.2) IMAGES IMAGES CXR without acute findings CT of head without acute findings; mild cerebral atrophy and chronic ischemic changes EKG EKG no acute changes ASSESSMENT/PLAN ASSESSMENT/PLAN 1. malignant HTN, POA, SBP > 230 responded to IV nicardipine continue oral meds echo to evaluate for hypertensive heart disease 2. encephalopathy likely related to malignant HTN 3. HLD check FLP continue statin therapy 4. hypothyroidism TSH low defer to primary service Problems: CAITLYN BENAVIDES MD 08/24/16 1652: CARDIAC CONSULT ALLERGIES ALLERGIES: Coded Allergies: No Known Drug Allergies (Unverified , 04/27/15) ASSESSMENT/PLAN ASSESSMENT/PLAN Patient seen and examined. Agree with DEAF INTERPRETER's assessment and plan. Blood pressure much better controlled since admission. Presently off Cardene drip. Continue oral and hypertensive agents. 2-D echo showed normal LV systolic function. Thank you for your consultation. Problems: [facility] BLOOM [facility] RASPER Aug 24, 2016 13:30 CAITLYN BENAVIDES MD Aug 24, 2016 16:52
[2016-08-24] MEDS: ASPIRIN CHEWABLE 81 MG TABLET. PO SCH (14:03)
--- NOTE | 2016-08-24 16:08 | CARD ---
APPROVED REPORT EXAM: Two-dimensional and M-mode echocardiogram with Doppler and color Doppler. Other Information Quality : Fair Technically limited study due to implants obstructing parasternal images. INDICATION Hypertension/HCVD 2D DIMENSIONS RVDd3.4 (2.9-3.5cm)Left Atrium(2D)3.0 (1.6-4.0cm) IVSd1.5 (0.7-1.1cm)Aortic Root(2D)2.6 (2.0-3.7cm) LVDd3.1 (3.9-5.9cm)LVOT Diameter2.1 (1.8-2.4cm) PWd1.3 (0.7-1.1cm)LVDs1.8 (2.5-4.0cm) FS (%) 30.0 %SV28.4 ml LVEF(%)60.0 (>50%) Aortic Valve AoV Peak Abel.140.1cm/sAoV VTI27.1cm AO Peak GR.7.9mmHgLVOT Peak Abel.144.7cm/s LVOT VTI 26.87cmAO Mean GR.6mmHg MATTHEW (VMAX)3.05kl2ZQD (VTI)3.28cm2 AI P 1/2 [id number] Mitral Valve MV E Fvhrgzct98.0cm/sMV DECEL [id number] MV A Nihunlvv29.0cm/sMV [id number] E/A Ratio0.8MVA (PHT)2.97cm2 TDI E/Lateral E'10.0E/Medial E'15.4 Tricuspid Valve TR P. Gdgidgvz213dx/sRAP [id number] TR Peak Gr.90rnAvLRIP86naGw Pulmonary Vein S1 Gxyfzeja73.8cm/sD2 Vyxanjyi72.2cm/s LEFT VENTRICLE The left ventricle is normal size. There is mild concentric left ventricular hypertrophy. The left ve ntricular systolic function is normal and the ejection fraction is within normal range. The Ejection Fraction is 55-60%. There is normal LV segmental wall motion. Transmitral Doppler flow pattern is Gra de I-abnormal relaxation pattern. RIGHT VENTRICLE The right ventricle is normal size. The right ventricular systolic function is normal. ATRIA The left atrium size is normal. The right atrium size is normal. The interatrial septum is intact wit h no evidence for an atrial septal defect or patent foramen ovale as noted on 2-D or Doppler imaging. AORTIC VALVE The aortic valve is calcified but opens well. Doppler and Color Flow revealed mild aortic regurgitati on. There is no significant aortic valvular stenosis. MITRAL VALVE The mitral valve is calcified but opens well. There is no evidence of mitral valve prolapse. There is no mitral valve stenosis. Doppler and Color-flow revealed mild mitral regurgitation. TRICUSPID VALVE The tricuspid valve is normal in structure and function. Doppler and Color Flow revealed mild tricusp id regurgitation. The PA pressure was estimated at 30 mmHg. There is no tricuspid valve stenosis. PULMONIC VALVE The pulmonary valve is normal in structure and function. Doppler and Color Flow revealed no pulmonic valvular regurgitation. There is no pulmonic valvular stenosis. GREAT VESSELS The aortic root is normal in size. The ascending aorta is normal in size. The IVC is normal in size a nd collapses >50% with inspiration. PERICARDIAL EFFUSION There is no evidence of significant pericardial effusion. Critical Notification Critical Value: No <Conclusion> The left ventricle is normal size. The left ventricular systolic function is normal and the ejection fraction is within normal range. The Ejection Fraction is 55-60%. There is mild concentric left ventricular hypertrophy. There is no significant aortic valvular stenosis. Doppler and Color Flow revealed mild aortic regurgitation. Doppler and Color-flow revealed mild mitral regurgitation. Doppler and Color Flow revealed mild tricuspid regurgitation. The PA pressure was estimated at 30 mmHg.
[2016-08-24] MEDS: ACETAMINOPHEN 325 MG TABLET. PO PRN (16:18)
[2016-08-24] MEDS ORDERED: AMLODIPINE BESYLATE 5 MG TABLET. PO SCH (17:30)
[2016-08-24] MEDS: AMLODIPINE BESYLATE 5 MG TABLET. PO SCH (18:00)
--- NOTE | 2016-08-24 19:26 | HP ---
ADMIT DATE: 08/23/2016 ADMISSION DIAGNOSIS: Malignant hypertension with encephalopathy. HISTORY OF PRESENT ILLNESS: This is a 76-year-old white female who was brought to the Emergency Room by family. Her noticed that about 4 hours prior to arrival that she was having some left-sided weakness and that was mainly involving her upper extremity. She seemed to have headache and just generally did not feel well. She was dropping objects. She had a headache and she was having trouble completing sentences and completing thoughts. The patient herself really does not remember any of those events. In the Emergency Room, she was seen and evaluated and found to be quite hypertensive with a systolic blood pressure of 233. Her imaging studies of her head did not show any acute signs of stroke. She was placed on a Cardene drip. Her blood pressure came down and her symptoms improved, but she was admitted. Overnight, she has remained on the Cardene drip and she has become ____. When she was seen this morning, she was alert and oriented, but still could not remember the events of the previous day. She was awaiting Cardiology and the Neurology consults at that time. Since that time, her studies have been rather unremarkable. MRI of the brain was completed and did not show a stroke. Echocardiogram showed a good ejection fraction with some mild concentric LVH. Lab studies showed mild anemia, mild hyperglycemia, mildly overtreated hypothyroidism. Cardene drip was weaned off as the day progressed, but now she felt bad prior to dinner and has just had an episode of emesis and her blood pressures back up with a systolic of 180. PAST MEDICAL HISTORY: Significant for hypertension, hypothyroidism, schizophrenia, osteoarthritis, COPD, breast cancer, hyperlipidemia and GERD. PAST SURGICAL HISTORY: Include bilateral mastectomy, cataract extraction in 2016. Her mastectomy has been several years ago now. ADDITIONAL SURGERY: Includes ankle fracture. FAMILY HISTORY: Both parents are . SOCIAL HISTORY: She is . No substance abuse. She lives with her . ALLERGIES: She has no known drug allergies. HOME MEDICATIONS: She is not using Spiriva routinely due to cost. She has pravastatin 40 mg at bedtime, pantoprazole 40 mg daily, lisinopril 20 mg daily, levothyroxine 137 mcg daily, tramadol 50 mg q. 4 hours p.r.n. pain and thioridazine 25 mg at bedtime. REVIEW OF SYSTEMS: GENERAL: Weight has been stable without fever or chills. CARDIAC: Negative for chest pain or palpitations. PULMONARY: Resolved cough, no wheezing. GASTROINTESTINAL: Episode of emesis. No constipation, history of GERD. No history of GI bleeding. GENITOURINARY: Occasional bladder leakage. MUSCULOSKELETAL: Positive for generalized arthritis. SKIN: Negative for rashes or lesions. NEUROLOGIC: Positive for the mental status changes prior to admission that seemed to have resolved. PSYCHIATRIC: Negative for acute schizophrenic symptoms. HEENT: Negative for any infectious symptoms. VACCINES: Her flu vaccine was on 03/29/2016, Pneumococcal Prevnar 13 was on 04/21/2015. PHYSICAL EXAMINATION: VITAL SIGNS: Blood pressure on the Cardene drip came down to 116/61, but off it, it is back up now. The rest for her vitals have been unremarkable. GENERAL: Cheeks were flushed when I saw her initially, but otherwise I could not find any significant exam findings. HEENT: Mucous membranes are moist. Sclerae nonicteric. Conjunctivae clear. Hearing intact. NECK: Supple. No bruit. HEART: Regular rate and rhythm without murmur, gallop or rub. CHEST: Bilateral mastectomy changes present. ABDOMEN: Obese, soft, nondistended without hepatosplenomegaly. EXTREMITIES: Without clubbing, cyanosis or peripheral edema. MUSCULOSKELETAL: Joints without acute effusion or synovitis and generally normal range of motion. NEUROLOGIC: Was not fully tested, but no focal weakness was identified. LABORATORY STUDIES: Mild anemia with a hemoglobin of 11.5. Chemistries: Initial hyperglycemic number of 130, but BUN has dropped from 21 to 12 and creatinine has dropped from 1.1 to 0.9. Her lipid panel is unremarkable with an HDL of 80. TSH slightly suppressed at 0.218. Urinalysis is unremarkable. Head CT was significant for some mild cerebral atrophy and mild patchy lucencies in the deep white matter bilaterally compatible with chronic ischemic change, but no acute stroke was noted. MRI of her brain shows no evidence of recent or acute infarct or other intracranial abnormalities. Chest x-ray shows no acute cardiopulmonary abnormality, several calcified right hilar lymph nodes are present. Surgical clips are projected over her lower chest. Echocardiogram showed an ejection fraction of 55 to 60% with mild concentric LVH, but no other significant findings. ASSESSMENT: 1. Acute malignant hypertension with acute encephalopathy that resolved with blood pressure control initially requiring Cardene drip. 2. Hypertension. 3. History of breast cancer without active treatment. 4. History of schizophrenia. 5. Hypothyroidism, slightly overtreated. 6. Mild concentric left ventricular hypertrophy without cardiomyopathy. 7. History of chronic obstructive pulmonary disease, no longer treating consistently. 8. Gastroesophageal reflux disease, asymptomatic, but she did have an episode of emesis with her last blood pressure reading being elevated again. PLAN: Amlodipine is added 5 mg 1 daily. Home meds are continued. Neurology has seen her in consultation. There is no evidence of a stroke. Cardiology has seen her in consultation. Glucose will be monitored. Blood pressure will be controlled and nausea and vomiting will hopefully be controlled with IV Zofran. W Elvira PARKS MD DR: TARAH/ailyn JOB#: [id number] / [id number]
[2016-08-24] MEDS: CLONIDINE HCL 0.1 MG TABLET PO SCH (20:13)
[2016-08-24] MEDS ORDERED: ATORVASTATIN CALCIUM 10 MG TABLET. PO SCH (21:00)
[2016-08-24] MEDS ORDERED: THIORIDAZINE 10 MG PO SCH (21:00)
[2016-08-24] MEDS ORDERED: THIORIDAZINE 25 MG PO SCH (21:00)
[2016-08-25 02:57] VITALS: BP 124/68
[2016-08-25] MEDS: IPRATRPIUM/ALBUTEROL 0.5/2.5MG 3 ML NEBU. NEB SCH (06:04)
[2016-08-25] MEDS ORDERED: AMLO5TAB2 PO (07:26)
[2016-08-25] MEDS ORDERED: ASPI81TA2 PO (07:26)
[2016-08-25 07:57] VITALS: BP 101/47
[2016-08-25] MEDS: LEVOTHYROXINE 137 MCG TABLET PO SCH (08:20)
[2016-08-25] MEDS: ASPIRIN CHEWABLE 81 MG TABLET. PO SCH (08:20)
[2016-08-25] MEDS: PANTOPRAZOLE 40 MG TABLET.DR. PO SCH (08:20)
[2016-08-25] MEDS: CLONIDINE HCL 0.1 MG TABLET PO SCH (09:00)
[2016-08-25] MEDS: INSULIN ASPART 300 UNITS/3 ML INSULN.PEN SQ SCH (09:19)
[2016-08-25 10:39] VITALS: BP 96/61
[2016-08-25 10:52] VITALS: BP 128/56
[2016-08-25] MEDS: AMLODIPINE BESYLATE 5 MG TABLET. PO SCH (10:52)
[2016-08-25] MEDS: LISINOPRIL 20 MG TABLET PO SCH (10:52)
--- NOTE | 2016-08-25 11:11 | ACF ---
Admit Criteria Forms Admit Criteria Forms Admit Criteria Forms HYPERTENSION Clinical Indications for Admission to Inpatient Care ( Place "X" for any and all applicable criteria): Admission is indicated for ANY ONE of the following(1)(2)(3)(4): [ ]I. Hypertensive emergency, with evidence of acute and progressing target organ disease as indicated by ANY ONE of the following: [ ]a) Hypertensive encephalopathy (eg, confusion, altered mental status) [ ]b) Cerebral infarction [ ]c) Intracranial hemorrhage [ ]d) Myocardial ischemia or infarction [ ]e) Pulmonary edema [ ]f) Aortic dissection [ ]g) Seizure [ ]h) Acute renal insufficiency [ ]i) Papilledema [ ]j) Microangiopathic hemolytic anemia [ ]II. Adrenergic crisis (eg, severe hypertension due to pheochromocytoma crisis, cocaine or amphetamine intoxication, or clonidine withdrawal) [X]III. Severe hypertension (SBP greater than 180 mmHg or DBP greater than 110 mmHg or greater than the 95th percentile for age, gender, and height in pediatric patients) that cannot be controlled (eg, to SBP less than 160 mmHg and DBP less than 100 mmHg in adults) by treatment with oral medication in emergency department or observation care Extended stay beyond goal length of stay may be needed for(11)(12)(13): [ ]a) Persistent hypertensive encephalopathy [ ]b) Continuation of pulmonary edema [ ]c) Recurring or persistent severe hypertension [ ]d) Target organ damage (eg, angina, stroke, aortic dissection) [ ]e) Associated renal insufficiency The original [employer] content created by [employer] has been revised. The portions of the content which have been revised are identified through the use of italic text or in bold, and [facility] has neither reviewed nor approved the modified material. All other unmodified content is copyright [employer] Please see references footnoted in the original [employer] edition 2016 ALFREDO MOREIRA Aug 25, 2016 11:11
--- NOTE | 2016-08-25 12:09 | PDOC ---
PROGRESS NOTES Assessment Problems Medical Problems: (1) Malignant essential hypertension Status: Acute (2) Metabolic encephalopathy Status: Acute Hypertensive encephalopathy, I doubt that she had a transient ischemic attack and there is no sign that she had a stroke. Plan Blood pressure control Aspirin Statin Okay for discharge Follow-up with neurology as needed Subjective No complaints Objective Vital Signs Date Time Temp Pulse Resp B/P Pulse Ox O2 Delivery O2 Flow Rate FiO2 08/25/16 10:52 79 128/56 08/25/16 10:39 97.7 20 93 Room Air 97.7 Intake and Output 08/25/16 07:00 Intake Total 920 ml Output Total 1250 ml Balance -330 ml Intake Oral 920 ml Output Urine Total 1250 ml PHYSICAL EXAM Alert. Oriented to time, place and person. PERRL. EOMI. CN: no focal findings. Muscle tone: normal. Muscle strength: 5/5 DTR: 2+ Plantar reflex: Flexor Gait: not examined in bed. Sensory exam: no abnormal findings. No cerebellar signs elicited. Review of Relevant I have reviewed the following items bunny (where applicable) has been applied. Labs Laboratory Tests Test 08/23/16 14:31 08/23/16 15:00 08/23/16 16:10 08/24/16 04:00 Glucose (Fingerstick) 121mg/dL (70-99) White Blood Count 6.4x10^3/uL (4.0-11.0) Red Blood Count 4.61x10^6/uL (3.50-5.40) Hemoglobin 11.7g/dL (12.0-15.5) Hematocrit 36.2% (36.0-47.0) Mean Corpuscular Volume 79fL (79-100) Mean Corpuscular Hemoglobin 26pg (25-35) Mean Corpuscular Hemoglobin Concent 33g/dL (31-37) Red Cell Distribution Width 15.2% (11.5-14.5) Platelet Count 277x10^3/uL (140-400) Neutrophils (%) (Auto) 71% (31-73) Lymphocytes (%) (Auto) 19% (24-48) Monocytes (%) (Auto) 8% (0-9) Eosinophils (%) (Auto) 1% (0-3) Basophils (%) (Auto) 1% (0-3) Neutrophils # (Auto) 4.6x10^3uL (1.8-7.7) Lymphocytes # (Auto) 1.2x10^3/uL (1.0-4.8) Monocytes # (Auto) 0.5x10^3/uL (0.0-1.1) Eosinophils # (Auto) 0.1x10^3/uL (0.0-0.7) Basophils # (Auto) 0.0x10^3/uL (0.0-0.2) Prothrombin Time 12.8SEC (11.7-14.0) Prothromb Time International Ratio 1.0 (0.8-1.1) Activated Partial Thromboplast Time 30SEC (24-38) Sodium Level 138mmol/L (136-145) 137mmol/L (136-145) Potassium Level 4.3mmol/L (3.5-5.1) 3.7mmol/L (3.5-5.1) Chloride Level 102mmol/L (98-107) 102mmol/L (98-107) Carbon Dioxide Level 26mmol/L (21-32) 23mmol/L (21-32) Anion Gap 10 (6-14) 12 (6-14) Blood Urea Nitrogen 21mg/dL (7-20) 12mg/dL (7-20) Creatinine 1.1mg/dL (0.6-1.0) 0.9mg/dL (0.6-1.0) Estimated GFR (Cockcroft-Gault) 48.4 61.0 BUN/Creatinine Ratio 19 (6-20) Glucose Level 130mg/dL (70-99) 137mg/dL (70-99) Calcium Level 9.4mg/dL (8.5-10.1) 8.9mg/dL (8.5-10.1) Magnesium Level 2.1mg/dL (1.8-2.4) Total Bilirubin 0.2mg/dL (0.2-1.0) Aspartate Amino Transf (AST/SGOT) 14U/L (15-37) Alanine Aminotransferase (ALT/SGPT) 17U/L (14-59) Alkaline Phosphatase 63U/L (46-116) Total Protein 7.4g/dL (6.4-8.2) Albumin 3.9g/dL (3.4-5.0) Albumin/Globulin Ratio 1.1 (1.0-1.7) Lipase 229U/L (73-393) Urine Collection Type U cath Urine Color Yellow Urine Clarity Clear Urine pH 7.0 Urine Specific [place] 1.015 Urine Protein Negativemg/dL (NEG-TRACE) Urine Glucose (UA) Negativemg/dL (NEG) Urine Ketones (Stick) Negativemg/dL (NEG) Urine Blood Negative (NEG) Urine Nitrite Negative (NEG) Urine Bilirubin Negative (NEG) Urine Urobilinogen Dipstick 0.2mg/dL (0.2 mg/dL) Urine Leukocyte Esterase Negative (NEG) Urine RBC 0/HPF (0-2) Urine WBC 0/HPF (0-4) Urine Transitional Epithelial Cells Mod/LPF Urine Amorphous Sediment Present/HPF Urine Bacteria 0/HPF (0-FEW) Triglycerides Level 69mg/dL (0-150) Cholesterol Level 161mg/dL (0-200) LDL Cholesterol, Calculated 67mg/dL (0-100) VLDL Cholesterol, Calculated 14mg/dL (0-40) HDL Cholesterol 80mg/dL (40-60) Cholesterol/HDL Ratio 2.0 Thyroid Stimulating Hormone (TSH) 0.218uIU/mL (0.358-3.74) Test 08/24/16 05:00 08/24/16 16:11 08/25/16 09:13 08/25/16 10:58 White Blood Count 8.2x10^3/uL (4.0-11.0) Red Blood Count 4.56x10^6/uL (3.50-5.40) Hemoglobin 11.5g/dL (12.0-15.5) Hematocrit 35.4% (36.0-47.0) Mean Corpuscular Volume 78fL (79-100) Mean Corpuscular Hemoglobin 25pg (25-35) Mean Corpuscular Hemoglobin Concent 33g/dL (31-37) Red Cell Distribution Width 15.3% (11.5-14.5) Platelet Count 270x10^3/uL (140-400) Neutrophils (%) (Auto) 72% (31-73) Lymphocytes (%) (Auto) 19% (24-48) Monocytes (%) (Auto) 9% (0-9) Eosinophils (%) (Auto) 0% (0-3) Basophils (%) (Auto) 0% (0-3) Neutrophils # (Auto) 5.9x10^3uL (1.8-7.7) Lymphocytes # (Auto) 1.6x10^3/uL (1.0-4.8) Monocytes # (Auto) 0.7x10^3/uL (0.0-1.1) Eosinophils # (Auto) 0.0x10^3/uL (0.0-0.7) Basophils # (Auto) 0.0x10^3/uL (0.0-0.2) Glucose (Fingerstick) 101mg/dL (70-99) 256mg/dL (70-99) 131mg/dL (70-99) Laboratory Tests Test 08/24/16 16:11 08/25/16 09:13 08/25/16 10:58 Glucose (Fingerstick) 101mg/dL (70-99) 256mg/dL (70-99) 131mg/dL (70-99) Medications Current Medications Sodium Chloride 1,000 ml @ 100 mls/hr Q10H IV Last administered on 08/23/16 15 :36; Start 08/23/16 at 15:00; Stop 08/24/16 at 00:59; Status DC Nicardipine HCl/ Sodium Chloride (Cardene/Iv Sodium Chloride 0.9% 250ml) 270 ml @ 0 mls/hr CONT PRN IV SEE I/O RECORD Last administered on 08/24/16 02:12; Start 08/23/16 at 15:00; Stop 08/24/16 at 18:06; Status DC Ondansetron HCl (Zofran) 4 mg PRN Q8HRS PRN IV NAUSEA/VOMITING; Start 08/23/16 at 16:45; Stop 08/24/16 at 16:44; Status DC Fentanyl Citrate 50 mcg 50 mcg PRN Q2HR PRN IV PAIN; Start 08/23/16 at 16:45; Stop 08/24/16 at 16:44; Status DC Sodium Chloride (Iv Sodium Chloride 0.9% 1000ml Bag) 1,000 ml @ 100 mls/hr Q10H IV Last administered on 08/24/16 02:13; Start 08/23/16 at 17:00; Stop at 16:59; Status DC Acetaminophen (Tylenol) 650 mg PRN Q4HRS PRN PO FEVER Last administered on 16:18; Start 08/23/16 at 16:45; Stop 08/24/16 at 16:44; Status DC Pneumococcal Polyvalent Vaccine (Do NOT chart on this placeholder) 1 each 1X ONCE MC ; Start 08/24/16 at 09:00; Stop 08/24/16 at 09:01; Status UNV Pneumococcal Polyvalent Vaccine (Pneumovax 23) 0.5 ml ONCE ONCE VAX IM ; Start 08/24/16 at 09:00; Stop 08/24/16 at 09:01; Status DC Levothyroxine Sodium (Synthroid) 137 mcg DAILYAC PO Last administered on 08:20; Start 08/24/16 at 08:00 Lisinopril (Prinivil) 20 mg DAILY PO Last administered on 08/25/16 10:52; Start 08/24/16 at 09:00 Pantoprazole Sodium (Protonix) 40 mg DAILYAC PO Last administered on 08/25/16 08:20; Start 08/24/16 at 08:00 Thioridazine HCl (Mellaril) 25 mg QHS PO ; Start 08/24/16 at 21:00; Stop 08/24/16 at 21:00; Status DC Tramadol HCl (Ultram) 50 mg PRN Q6HRS PRN PO PAIN Last administered on 16:18; Start 08/24/16 at 07:15 Non-Formulary Medication 20 mg DAILY PO ; Start 08/24/16 at 09:00; Status UNV Atorvastatin Calcium (Lipitor) 10 mg QHS PO Last administered on 08/24/16 20:13 ; Start 08/24/16 at 21:00 Non-Formulary Medication 2 inh DAILY IH ; Start 08/24/16 at 09:00; Status UNV Albuterol/ Ipratropium (Duoneb) 3 ml RTQID NEB Last administered on 08/25/16 06 :04; Start 08/24/16 at 08:00 Thioridazine HCl (Mellaril) 25 mg QHS PO Last administered on 08/24/16 20:13; Start 08/24/16 at 21:00 Insulin Aspart (Novolog) 0-5 UNITS TIDWMEALS SQ Last administered on 08/25/16 09:19; Start 08/24/16 at 12:00 Dextrose (Dextrose 50%-Water Syringe) 12.5 gm PRN Q15MIN PRN IV SEE COMMENTS; Start 08/24/16 at 08:30 Aspirin (Children'S Aspirin) 81 mg DAILYWBKFT PO Last administered on 08/25/16 08:20; Start 08/24/16 at 11:30 Amlodipine Besylate (Norvasc) 5 mg DAILY PO Last administered on 08/25/16 10:52 ; Start 08/24/16 at 18:00 Amlodipine Besylate (Norvasc) 5 mg DAILY PO ; Start 08/24/16 at 17:30; Status UNV Clonidine HCl (Catapres) 0.1 mg BID PO Last administered on 08/24/16 20:13; Start 08/24/16 at 20:00 Active Scripts Active Reported Spiriva (Tiotropium [place]) 18 Mcg Cap.w.dev 2 Inh IH DAILY Tramadol Hcl 50 Mg Tablet 50 Mg PO Q6H PRN Omeprazole 20 Mg Tablet. 20 Mg PO DAILY Benzonatate 100 Mg Capsule 100 Mg PO TID PRN Thioridazine Hcl 25 Mg Tablet 25 Mg PO Pravastatin Sodium 40 Mg Tablet 40 Mg PO DAILY Lisinopril 20 Mg Tablet 20 Mg PO DAILY Levothyroxine Sodium 137 Mcg Tablet 137 Mcg PO DAILYAC Pantoprazole Sodium 40 Mg Tablet.dr 1 Tab PO DAILY Vitals/I & O Vital Sign - Last 24 Hours 08/24/16 08/24/16 08/24/16 08/24/16 13:27 14:54 16:18 17:00 Temp 98.2 98.2 Pulse 89 83 Resp 19 22 B/P 116/61 181/63 Pulse Ox 96 91 91 O2 Delivery Room Air Room Air Room Air 08/24/16 08/24/16 08/24/16 08/24/16 17:18 17:26 18:00 19:10 Temp 99.7 99.7 Pulse 89 114 Resp 18 B/P 181/61 196/71 Pulse Ox 96 96 91 O2 Delivery Room Air Room Air Room Air 08/24/16 08/24/16 08/24/1608/24/17 19:30 19:48 20:13 22:57 Temp 98.6 98.6 Pulse 114 103 Resp 20 B/P 196/71 148/73 Pulse Ox 96 93 O2 Delivery Room Air Room Air Room Air 08/25/16 08/25/16 08/25/16 08/25/16 02:57 06:04 07:57 08:00 Temp 98.1 97.9 98.1 97.9 Pulse 85 84 Resp 18 18 B/P 124/68 101/47 Pulse Ox 94 96 93 O2 Delivery Room Air Room Air Room Air Room Air 08/25/16 08/25/16 08/25/16 10:39 10:52 10:52 Temp 97.7 97.7 Pulse 81 79 79 Resp 20 B/P 96/61 128/56 128/56 Pulse Ox 93 O2 Delivery Room Air Intake and Output 08/24/16 08/24/16 08/25/16 15:00 23:00 07:00 Intake Total 120 ml 800 ml Output Total 1100 ml 150 ml Balance -1100 ml 120 ml 650 ml Images Brain MRI: There are scattered foci of FLAIR signal hyperintensity in the periventricular white matter which are nonspecific but most likely related to sequelae of chronic small vessel ischemic disease. No evidence of acute intracranial hemorrhage. No restricted diffusion to indicate acute infarct. No extra-axial fluid collections. No midline shift or mass effect. Ventricular size is appropriate. Midline structures have a normal anatomic configuration. Basal cisterns are patent. Arterial flow voids at the skull base and major dural venous sinuses are maintained. Globes and orbits are unremarkable. Paranasal sinuses and mastoid air cells are clear. IMPRESSION: No acute or recent infarct. No acute intracranial abnormality. Echo: LEFT VENTRICLE The left ventricle is normal size. There is mild concentric left ventricular hypertrophy. The left ventricular systolic function is normal and the ejection fraction is within normal range. The Ejection Fraction is 55-60%. There is normal LV segmental wall motion. Transmitral Doppler flow pattern is Grade I- abnormal relaxation pattern. RIGHT VENTRICLE The right ventricle is normal size. The right ventricular systolic function is normal. ATRIA The left atrium size is normal. The right atrium size is normal. The interatrial septum is intact with no evidence for an atrial septal defect or patent foramen ovale as noted on 2-D or Doppler imaging. AORTIC VALVE The aortic valve is calcified but opens well. Doppler and Color Flow revealed mild aortic regurgitation. There is no significant aortic valvular stenosis. MITRAL VALVE The mitral valve is calcified but opens well. There is no evidence of mitral valve prolapse. There is no mitral valve stenosis. Doppler and Color-flow revealed mild mitral regurgitation. TRICUSPID VALVE The tricuspid valve is normal in structure and function. Doppler and Color Flow revealed mild tricuspid regurgitation. The PA pressure was estimated at 30 mmHg. There is no tricuspid valve stenosis. PULMONIC VALVE The pulmonary valve is normal in structure and function. Doppler and Color Flow revealed no pulmonic valvular regurgitation. There is no pulmonic valvular stenosis. GREAT VESSELS The aortic root is normal in size. The ascending aorta is normal in size. The IVC is normal in size and collapses >50% with inspiration. PERICARDIAL EFFUSION There is no evidence of significant pericardial effusion. Critical Notification Critical Value: No <Conclusion> The left ventricle is normal size. The left ventricular systolic function is normal and the ejection fraction is within normal range. The Ejection Fraction is 55-60%. There is mild concentric left ventricular hypertrophy. There is no significant aortic valvular stenosis. Doppler and Color Flow revealed mild aortic regurgitation. Doppler and Color-flow revealed mild mitral regurgitation. Doppler and Color Flow revealed mild tricuspid regurgitation. The PA pressure was estimated at 30 mmHg. WILDER ELIAS MD Aug 25, 2016 12:09
--- NOTE | 2016-08-25 12:54 | PDOC3 ---
Discharge Summary* Date of Admission: Aug 23, 2016 Date of Discharge: Aug 25, 2016 Admitting Diagnosis Problems Medical Problems: (1) Malignant essential hypertension Status: Acute (2) Metabolic encephalopathy Status: Acute Final Diagnosis Problems Medical Problems: (1) Malignant essential hypertension Status: Acute (2) Metabolic encephalopathy Status: Acute Brief Hospital Course Ms. Hendrix is a 76 old White female who presented with severe HTN and mental status changes. she was placed on a cardene drip and blood pressure came under control. she was back to base line therefore her po HTN meds where adjusted and plans for discharge were made with F/U within 7 days rec. Disposition/Orders: D/C to Home CONDITION AT DISCHARGE: Improved Diet: 2 gr sodium Scheduled Amlodipine Besylate (Amlodipine Besylate) 5 MG PO DAILY Aspirin (Aspirin) 81 MG PO [id number] Levothyroxine Sodium (Levothyroxine Sodium) 137 MCG PO DAILYAC (Reported) Lisinopril (Lisinopril) 20 MG PO DAILY (Reported) Omeprazole (Omeprazole) 20 MG PO DAILY (Reported) Pantoprazole Sodium (Pantoprazole Sodium) 1 TAB PO DAILY (Reported) Pravastatin Sodium (Pravastatin Sodium) 40 MG PO DAILY (Reported) Tiotropium [place] (Spiriva) 2 INH IH DAILY (Reported) Scheduled PRN Benzonatate (Benzonatate) 100 MG PO TID PRN PRN COUGH (Reported) Tramadol Hcl (Tramadol Hcl) 50 MG PO Q6H PRN PRN PAIN (Reported) Miscellaneous Medications Thioridazine Hcl (Thioridazine Hcl) 25 MG PO (Reported) FOLLOW UP APPOINTMENT: [address] Cantrell Time Spent Total time spent with patient 30 minutes for coordination of care, counseling, and education. LOTUS FELICIANO MD Aug 25, 2016 12:54
== END 2016-08-25 12:50 | disposition home or self-care (01) | DRG 77 ==
LOC: ER 14:24 → 2 SOUTH 16:24
PROVIDERS: ADMIT Family Medicine; ATTEND Family Medicine
DX: I67.4 Hypertensive encephalopathy (principal); G93.41 Metabolic encephalopathy; I10 Essential (primary) hypertension; D64.9 Anemia, unspecified; E03.9 Hypothyroidism, unspecified; E78.00 Pure hypercholesterolemia, unspecified; E78.5 Hyperlipidemia, unspecified; F17.210 Nicotine dependence, cigarettes, uncomplicated; F20.9 Schizophrenia, unspecified; M19.90 Unspecified osteoarthritis, unspecified site; J44.9 Chronic obstructive pulmonary disease, unspecified; K21.9 Gastro-esophageal reflux disease without esophagitis; Z85.3 Personal history of malignant neoplasm of breast; Z90.13 Acquired absence of bilateral breasts and nipples; Z90.49 Acquired absence of other specified parts of digestive tract
CPT/HCPCS: 36415; 51701; 70450; 70551; 71010; 80048; 80053; 80061; 81001; 82947; 83690; 83735; 84443; 85027; 85610; 85730; 93005; 93306; 94250; 94640; 94760; J1815; J7030; J7050; J7620; 99291-25

== ENCOUNTER → 2017-08-07 | Day surgery (SDC) | payer BC ==
[~2017-08-07] MED LIST: LIDOCAINE 1% PF 2 ML VIAL. ID; MIDAZOLAM HCL/PF 2 MG/2 ML VIAL. IV; PROPOFOL 20 ML IV; fentaNYL PF VIAL 100 MCG/2 ML VIAL IV
[2017-08-07] MEDS: IV RINGERS,LACTATED 1000ML 1,000 ML IV (07:16)
== END ==
LOC: ENDOS 06:26
DX: K57.30 Diverticulosis of large intestine without perforation or abscess without bleeding (principal); K64.0 First degree hemorrhoids; K22.70 Barrett's esophagus without dysplasia; K21.9 Gastro-esophageal reflux disease without esophagitis; J44.9 Chronic obstructive pulmonary disease, unspecified; F32.9 Major depressive disorder, single episode, unspecified; I10 Essential (primary) hypertension; F17.210 Nicotine dependence, cigarettes, uncomplicated; Z86.010 Personal history of colon polyps; Z85.3 Personal history of malignant neoplasm of breast; Z87.39 Personal history of other diseases of the musculoskeletal system and connective tissue; Z72.89 Other problems related to lifestyle; Z90.49 Acquired absence of other specified parts of digestive tract; Z98.890 Other specified postprocedural states
CPT/HCPCS: 45378; J2704

== ENCOUNTER → 2017-11-07 | Outpatient (CLI) | payer BC ==
[2017-11-07] MEDS: REGADENOSON 0.4 MG/5 ML DISP.SYRIN. IV (10:53)
== END | disposition home or self-care (01) ==
LOC: ECHO 07:22
DX: I08.3 Combined rheumatic disorders of mitral, aortic and tricuspid valves (principal)
CPT/HCPCS: 78452; 93017; 93306; 96374; 96375; 96376; A9500; J2785